=== PATIENT | female | born 1930 | race Caucasian/White ===

== ENCOUNTER 2017-05-17 09:36 | Inpatient (IN) | payer MEDICARE, OTHER ==
[~2017-05-17] VITALS: Ht 157.5 cm; Wt 68.0 kg
[2017-05-17] VITALS (8 sets, daily range): BP systolic 93–131; BP diastolic 56–85; PULSE 60–95; RESP 16–22; O2SAT 91–99
[~2017-05-17 09:36] MED LIST: ACYC400T2 PO; AZEL205.2 NS; CALC-190 PO; CHOL200047 PO; GABA-502 PO; HYDR200T5 PO; METH2.5T PO; OMEP20CA11 PO; PRD1T PO; RIVA20TA PO; SYN75 PO; [UNRECOGNIZED DRUG - CODE] PO
--- NOTE | 2017-05-17 09:47 | ED.REPORT ---
HPI-Abd Pain F 40 and Over Date of Service May 17, 2017 ED Provider: Dr. Johnson Pt is an 87 year old female with a history of a pacemaker who presents to the ED with complaints of nausea and vomiting over the past couple of days. She states that she has been dry heaving so frequently, that her chest has began to ate. Pt states that her symptoms are induced with eating, and so has not been able to eat her meals regularly. She denies any blood in her emesis. She states that she has abdominal pain, localized to the lower abdomen. She reports that she had a bowel obstruction in the past, but denies this feeling similar. She has not had a bowel movement since the onset of her symptoms, but admits to passing gas regularly. She denies any shortness of breath, diaphoresis or any other symptoms. Nursing Notes Stated Complaint: SICK Chief Complaint: Female Abdominal Pain Nursing Notes Reviewed: Yes Allergies: Coded Allergies: Cat Dander (Verified Allergy, Mild, 03/19/16) Dog Dander (Verified Allergy, Mild, 03/19/16) Scheduled Acyclovir (Acyclovir) 400 Mg Tablet 400 MG PO DAILY Calcium Carb&Cit/Mag12/Vit D3 (Calcium 500 mg Tablet) 1 Each Tablet 2 TAB PO DAILY Cyanocobalamin (Vitamin B-12) (Vitamin B-12) 2,000 Mcg Tablet 2,000 MCG PO DAILY Gabapentin (Gabapentin) 300 Mg Capsule 300 MG PO BID Hydroxychloroquine Sulfate (Hydroxychloroquine Sulfate) 200 Mg Tablet 400 MG PO DAILY Levothyroxine (Synthroid) 75 Mcg Tablet 75 MCG PO DAILY Methotrexate Sodium (Methotrexate) 2.5 Mg Tablet 25 MG PO WEEKLY Omeprazole (Omeprazole) 20 Mg Capsule.dr 40 MG PO DAILY PredniSONE (PredniSONE) 1 Mg Tab 3 MG PO DAILY Rivaroxaban (Xarelto) 20 Mg Tablet 20 MG PO DAILY Miscellaneous Medications Azelastine HCl (Azelastine HCl) 205.5 Mcg/0.137 Ml [place].pump 205.5 MCG NS Cholecalciferol (Vitamin D3) (Vitamin D3) 2,000 Unit Capsule 2,000 UNIT PO General Time Seen by MD: 09:46 Chief Complaint Abdominal pain Hx Obtained From: Patient Sudden in Onset?: Yes Onset Occurred: Yesterday Context of Onset: Eating Symptom Duration: Since onset Location: : Diffuse Quality: Painful Severity: Current: Mild Severity: Maximum: Moderate Similar Sx Previous: Yes Past Medical History Past Medical History Notes: Rehab Liaison: Dr. Reed Past Medical History Atrial fibrillation, on Xarelto Past Surgical History Pacemaker Family History noncontributory Smoking History Former Smoker Social History Drug Use: Denies drug use Other Social History: Good social support, , Local resident Ambulatory Status Independent Review of Systems Constitutional: Denies: Chills, Fever, Malaise, Weakness - generalized Respiratory: Denies: Non-productive cough, Shortness of breath, Wheezing Cardiovascular: Reports: Chest pain, Denies: Syncope GI: Reports: Abdominal pain, Nausea, Vomiting, Denies: Constipation, Diarrhea Female: Denies: Dysuria, Flank pain, Urinary frequency, Urinary urgency Musculoskeletal: Denies: Back pain, Neck pain Complete sys rev & neg: except as marked. Physical Exam Vital Signs Vital Signs (First) Date Time Temp Pulse Resp B/P Pulse Ox O2 Delivery O2 Flow Rate FiO2 05/17/17 09:42 37.0 83 22 131/85 99 Room Air Initial VS: Reviewed Head / Eyes: Atraumatic, Normocephalic, PERRL ENT: Mucous membranes moist, Conjunctiva normal, No scleral icterus Neck: Supple, Non-tender, Full range of motion Skin: Warm, Dry, No cyanosis Neurologic: Alert, Oriented, Nonfocal General/Constitutional: Awake, Alert, Well appearing, Well nourished, Cooperative Respiratory / Chest: Atraumatic, Breath sounds NL, Breath sounds = bilat Cardiovascular: Heart rate NL, Regular rhythm, Heart sounds NL Abdomen: Atraumatic, Soft Distended and tympanic to percussion Diffusely tender No focal rebound or guarding Back: Atraumatic, Inspection NL, No CVA tenderness Interpretation & Diagnostics Lab Results Interpretation Result Diagram: 05/17/17 1000 05/17/17 1000 Test 05/17/17 10:00 White Blood Count 7.2th/mm3 (3.8-10.1) Red Blood Count 4.19mil/mm3 (3.90-5.20) Hemoglobin 15.7g/dL (12.0-15.6) Hematocrit 45.3% (35.0-46.0) Mean Corpuscular Volume 108.1fL (81-100) Mean Corpuscular Hemoglobin 37.5pg (27.0-35.0) Mean Corpuscular Hemoglobin Concent 34.7% (32.0-37.0) Red Cell Distribution Width 14.8% (12.3-15.4) Platelet Count 193bil/L (150-400) Neutrophils (%) (Auto) 89.5% (40-74) Lymphocytes (%) (Auto) 3.7% (14-46) Monocytes (%) (Auto) 6.8% (4-12) Eosinophils (%) (Auto) 0% (0-5) Basophils (%) (Auto) 0% (0-3) Sodium Level 142mEq/L (134-144) Potassium Level 4.5mEq/L (3.5-5.2) Chloride Level 97mEq/L (97-108) Carbon Dioxide Level 24mmol/L (18-29) Blood Urea Nitrogen 28mg/dL (8-27) Creatinine 0.58mg/dL (0.57-1.00) Estimat Glomerular Filtration Rate 141mL/min (>59) Glucose Level 166mg/dL (60-99) Lactic Acid Level 3.0mmol/L (0.4-2.0) Calcium Level 9.9mg/dL (8.5-10.1) Magnesium Level 2.0mg/dL (1.6-2.6) Total Bilirubin 0.9mg/dL (0.0-1.2) Aspartate Amino Transf (AST/SGOT) 33U/L (0-50) Alanine Aminotransferase (ALT/SGPT) 15U/L (0-32) Alkaline Phosphatase 82U/L (25-165) Total Protein 7.5g/dL (6.4-8.4) Albumin 4.3g/dL (3.4-5.0) Lipase 53U/L (13-60) ECG Interpretation ECG Interpretation: Antrial-sensed ventricular-paced complexes - 81 Time: 10:20 Interpreted by: ED physician X-Ray Abdominal Interpretation IMPRESSION: Changes are present of small bowel obstruction. Gastric distention and air-fluid level is noted as well. Dictated by: Syed Stevenson M.D. on 05/17/2017 at 10:34 Interpretation / Wet Read by: Interpret - Radiologist Re-Eval/Medical Decision Med Decision/Clinical Course Findings of a small bowel obstruction, patient reports reportedly had some chest discomfort yesterday and has not had any chest discomfort today. Her troponin is elevated this may represent non-ST elevation NC versus other secondary causes of elevated troponin. She is given aspirin rectally due to the vomiting. She is already on anticoagulatoin for Afib. IV heparin is held given the acute small bowel obstruction. Will plan to admit to progressive care due to the elevated troponin. No nitroglycerin given due to no ongoing chest pain. EKG similar to prior. Source of Hx: Old records Re-Evaluation/Progress #1: Time of Eval: 10:45 Re-Evaluation/Progress Note: Pt is rechecked and informed of her imaging results and the plan to admit her at this time. She understands and agrees, all questions are addressed. Re-Evaluation/Progress #2: Time of Eval: 11:30 Re-Evaluation/Progress Note: Pt is rechecked and informed of her elevated troponin level. She reports that she has no chest pain currently, with her last episode being last night. Pt states that she had no bouts of chest pain associated with shortness of breath. Consultation : Consulted With: Hospitalist Call Returned at: 11:18 Coding Assistant: Will see patient, Agrees with plan, Accepts admit Counseled Regarding: Diagnosis, Lab results, Need for admission Discharge & Departure Primary Impression: Bowel obstruction Intestinal obstruction type: unspecified Qualified Code: K56.60 - Unspecified intestinal obstruction Disposition: ADMITTED TO HOSPITAL Discharge Condition All VS Reviewed: Yes Condition: Stable Referrals: Sky Stein DO (PCP) Maye Attestation Portions of this note were transcribed by Letty Boland. I, Dr. Johnson personally performed the history, physical exam and medical decision-making; I reviewed and confirmed the accuracy of the information in the transcribed note. Signed by: Maye Connors, 05/17/2017 1116 copies to: Sky Stein Timothy S DO May 17, 2017 09:47 BRYAN BOLAND May 17, 2017 09:57
[2017-05-17] MEDS ORDERED: 0.9% Sodium Chloride 500 ML IV ONE (10:00)
[2017-05-17] MEDS ORDERED: Ondansetron 2 mg/mL 2 mL Inj IVPUSH PRN ×2 (10:00→12:45)
[2017-05-17 10:18] LABS: BASOPHILS % (AUTO) 0 % (0-3); EOSINOPHILS % (AUTO) 0 % (0-5); MONOCYTES % (AUTO) 6.8 % (4-12); Mean Corpuscular Hemoglobin 37.5 pg (27.0-35.0); Mean Corpuscular Volume 108.1 fL (81-100); NEUTROPHILS % (AUTO) 89.5 % (40-74); Platelet Count 193 bil/L (150-400)
--- NOTE | 2017-05-17 10:39 | DRSVH ---
PROCEDURE: X-RAY ACUTE ABDOMINAL SERIES ([id number]) INDICATIONS: chest pain, vomiting TECHNIQUE: One view chest and two views of the abdomen were acquired. COMPARISON: [facility], , ABD ACUTE SERIES, 02/11/2015, 9:44. FINDINGS: Surgical changes and devices: Dual-lead pacemaker from the left is present. color television console monitor leads are seen over the chest. Chest: Lungs are clear. Heart size is enlarged. No pleural effusions. No pneumoperitoneum. Abdomen: Bowel gas pattern is abnormal. There is a markedly distended stomach and there are mildly d istended small bowel loops with air-fluid levels. Minimal gas or feces in the colon. No suspicious ca lcifications. Visualized solid organ contours appear normal. Bones: No suspicious bony lesions. IMPRESSION: Changes are present of small bowel obstruction. Gastric distention and air-fluid level is noted as well. Dictated by: Syed Stevenson M.D. on 05/17/2017 at 10:34 Approved by: Syed Stevenson M.D. on 05/17/2017 at 10:36
[2017-05-17] MEDS ORDERED: Benzoc-Butamben-Tetraca Spray 20 Gm Spray TOPICAL ONE (10:45)
[2017-05-17] MEDS ORDERED: Polyethylene Glycol (PEG) 17 Gm Powder PO PRN (12:45)
[2017-05-17] MEDS ORDERED: Alum-Mag Hydrox-Simeth 30 mL Suspension PO PRN (12:45)
--- NOTE | 2017-05-17 13:27 | PCM.HPMED ---
Subjective Date of Service May 17, 2017 Primary Provider: Admitting Physician: Chencho Guzman MD Primary Care Physician: Sky Stein DO Attending Physician: Clay Mayer MD Chief Complaint: Nausea and vomiting History of Present Illness: Trista Magdaleno is an 87 year old woman with a PMH of Afib on Xarelto, rheumatoid arthritis on Methotrexate and low dose prednisone, and prior SBOs s/p colon resection who presents with a 2 day history of nausea vomiting and mild chest pain. She states that her symptoms were worsened with eating, and relieved with small volume cold water. She further complains of pain in her lower abdomen, and states that she hasn't had a BM in the past 2 days but does endorse ongoing flatulence. She denies ongoing chest pain, SOB, dysuria, orthopnea, GUO, or cough. She does have a history of prior abdominal surgeries, she cannot recall the exact nature or timing, but at least a partial colectomy due to obstruction in 2014. She has a daughter who is highly involved in her care, but is currently out of town on vacation. In the ED the patient underwent abdominal Xray which was indicative of an SBO, initiated on NG suction which produced 800 ml of drainage fairly rapidly, and was incidentally found to have an elevated Troponin which is being trended. Review of Systems: Comprehensive ROS negative except as listed above. Allergies Coded Allergies: Cat Dander (Verified Allergy, Mild, 03/19/16) Dog Dander (Verified Allergy, Mild, 03/19/16) Home Medications Acyclovir (Acyclovir) 400 Mg Tablet 400 MG PO DAILY Calcium Carb&Cit/Mag12/Vit D3 (Calcium 500 mg Tablet) 1 Each Tablet 2 TAB PO DAILY Cyanocobalamin (Vitamin B-12) (Vitamin B-12) 2,000 Mcg Tablet 2,000 MCG PO DAILY Gabapentin (Gabapentin) 300 Mg Capsule 300 MG PO BID Hydroxychloroquine Sulfate (Hydroxychloroquine Sulfate) 200 Mg Tablet 400 MG PO DAILY Levothyroxine (Synthroid) 75 Mcg Tablet 75 MCG PO DAILY Methotrexate Sodium (Methotrexate) 2.5 Mg Tablet 25 MG PO WEEKLY Omeprazole (Omeprazole) 20 Mg Capsule.dr 40 MG PO DAILY PredniSONE (PredniSONE) 1 Mg Tab 3 MG PO DAILY Rivaroxaban (Xarelto) 20 Mg Tablet 20 MG PO DAILY Miscellaneous Medications Azelastine HCl (Azelastine HCl) 205.5 Mcg/0.137 Ml [place].pump 205.5 MCG NS Cholecalciferol (Vitamin D3) (Vitamin D3) 2,000 Unit Capsule 2,000 UNIT PO . PMH Afib on Xarelto with a pacer Colonic obstruction requiring partial resection Rheumatoid arthritis GERD Aceves's esophagus diverticulitis IBS . Surgical History Pacer implantation Partial colectomy 2015 Hysterectomy . Family History Patient unable to relate any relevant family history Social History Hx Alcohol Use: No Hx Substance Use: No Hx Tobacco Use: No Smoking Status: Former Smoker Exam Vital Signs Vital Sign - Last Date Time Temp Pulse Resp B/P Pulse Ox O2 Delivery O2 Flow Rate FiO2 05/17/17 13:06 80 18 100/70 94 Room Air 05/17/17 09:42 37.0 Exam Gen: A/O x3 pleasant cooperative elderly woman in mild acute distress secondary to abdominal pain and dry mouth Neck: supple, non tender, no thyromegaly, no JVD HEENT: PERRL, EOMI, no scleral icterus, no conjunctival pallor CV: irregularly irregular, no murmurs rubs or gallops Resp: Lungs CTA BL, no wheezing rales or rhonchi Abd: mildly firm and distended, BS diminished throughout, mild tenderness to palpation in lower field, no rebound or guarding, no organomegaly Extr: No cyanosis clubbing or edema Neuro: CN 2-12 grossly intact, no focal neurologic deficit Psych: Pleasant and appropriate mood and affect. Lab and Diagnostics Labs Item Value Date Time Red Blood Count 4.19 mil/mm3 05/17/17 1000 Mean Corpuscular Volume 108.1 fL H 05/17/17 1000 Mean Corpuscular Hemoglobin 37.5 pg H 05/17/17 1000 Mean Corpuscular Hemoglobin Concent 34.7 % 05/17/17 1000 Red Cell Distribution Width 14.8 % 05/17/17 1000 Neutrophils (%) (Auto) 89.5 % H 05/17/17 1000 Lymphocytes (%) (Auto) 3.7 % L 05/17/17 1000 Eosinophils (%) (Auto) 0 % 05/17/17 1000 Monocytes (%) (Auto) 6.8 % 05/17/17 1000 Basophils (%) (Auto) 0 % 05/17/17 1000 Estimat Glomerular Filtration Rate 141 mL/min 05/17/17 1000 Lactic Acid Level 3.0 mmol/L H 05/17/17 1000 Calcium Level 9.9 mg/dL 05/17/17 1000 Magnesium Level 2.0 mg/dL 05/17/17 1000 Total Bilirubin 0.9 mg/dL 05/17/17 1000 Aspartate Amino Transf (AST/SGOT) 33 U/L 05/17/17 1000 Alanine Aminotransferase (ALT/SGPT) 15 U/L 05/17/17 1000 Alkaline Phosphatase 82 U/L 05/17/17 1000 Troponin T 0.274 ug/L *H 05/17/17 1000 Total Protein 7.5 g/dL 05/17/17 1000 Albumin 4.3 g/dL 05/17/17 1000 Lipase 53 U/L 05/17/17 1000 Result Diagram: 05/17/17 1000 05/17/17 1000 X-Rays, CTs and MRIs X-RAY ACUTE ABDOMINAL SERIES IMPRESSION: Changes are present of small bowel obstruction. Gastric distention and air-fluid level is noted as well. Dictated by: Syed Stevenson M.D. on 05/17/2017 at 10:34 Approved by: Syed Stevenson M.D. on 05/17/2017 at 10:36 . 12-lead ECG Paced complex, rate of 81 Assessment & Plan Trista Magdaleno is an 87 year old man with a PMH of prior SBO and colonic obstruction, RA, and Afib on Xarelto with a pacer who presents with a 2 day history of worsening nausea, vomiting, and anorexia for the past 2 days. Imaging in the ED indicative of SBO, started on NG suction and NPO with plan for gastrographin challenge tomorrow unless patient has a BM. Of note the patient also had an Elevated Trop of uncertain significance which is being trended. Small bowel obstruction, POA, acute. Active -Imaging suggestive of SBO, nausea, vomiting, and anorexia with history of GI obstruction and multiple abdominal surgeries -NG tube suction -NPO -IV NS @100/hr -Possible gastrographin challenge test tomorrow -Holding non essential PO meds(continue Levothyroxine, methotrexate, and Prednisone) -Will consider surgical consultation if symptoms worsen or fail to improve -MS as needed for abdominal pain Elevated Troponin of uncertain significance, POA, acute. Active -Likely secondary to stress induced demand ischemia due to the above -Patient complained of chronic waxing waning chest pain -Not exertional, not relieved by Nitro -Will trend Trop Q4 -Holding Heparin drip to trend as patient may require surgery in the near future is the above does not resolve Hypothyroid, POA, chronic. Active -Will continue Levothyroxine Afib on Xarelto, POA, chronic. Active -Will hold Xarelto for possible surgical intervention Rheumatoid Arthitis, POA, chronic. Stable -Continue Methotrexate and Prednisone Patient Status: Inpatient, anticipated length of stay >2 midnights due to severity of condition and complexity of treatment plan. Pain Evaluation: Adequate Pain Control VTE Prophylaxis Indicated: Contraindicated (Want to make sure patient does not require procedure) VTE Mechanical Devices: Intermittant Pneumatic CD Resuscitation Status: DNR/DNI:Do Not Resuscitate/Intubate Wood Harrington DO May 17, 2017 13:27
--- NOTE | 2017-05-17 16:29 | NUR ---
Med Rec Pt. is a poor historian of her home medications. Med Rec is pending on medication list from pt's [facility], [facility] Addendum: 05/17/17 at 1730 by POONAM LLAMAS RN [facility] faxed med list. Attempted to review the list with pt. Pt. got frustrated, "I don't remember this. Dr. Bianchi knows what I'm taking." Plan: Get med list from Dr. Bianchi's office on Thursday. aware. Primary nurse, Jayne Burroughs RN aware.
--- NOTE | 2017-05-17 17:00 | NUR ---
Admit to [facility] 2011 NPO status; NGT with scant output (reported by Cynthia RN NGT output of 800cc. Admission in progress-see EMR.
--- NOTE | 2017-05-17 19:00 | NUR ---
Bed Waqar alarm in place & active
[2017-05-17] MEDS: Sodium Chloride LOK Flush 10 mL Syringe IVFLUSH SCH ×2 (19:27→23:54)
[2017-05-17] MEDS: 0.9% Sodium Chloride 1,000 ML IV SCH ×2 (20:11→20:12)
[2017-05-18] VITALS (9 sets, daily range): BP systolic 94–143; BP diastolic 56–73; PULSE 60–80; RESP 16–20; O2SAT 92–96
[2017-05-18 03:39] LABS: BASOPHILS % (AUTO) 0.2 % (0-3); EOSINOPHILS % (AUTO) 0.7 % (0-5); MONOCYTES % (AUTO) 9.1 % (4-12); Mean Corpuscular Hemoglobin 37.1 pg (27.0-35.0); Mean Corpuscular Volume 113.5 fL (81-100); NEUTROPHILS % (AUTO) 72.5 % (40-74); Platelet Count 164 bil/L (150-400)
[2017-05-18 03:49] LABS: INR 1.08 ratio
[2017-05-18 04:03] LABS: Phosphorus 3.3 mg/dL (2.5-4.9)
--- NOTE | 2017-05-18 04:55 | NUR ---
GI: Pt. denies nausea throughout shift. Denies pain with light abdominal palpation. NG tube in place, draining small amount of green/brown drainage. NPO throughout shift. No overt signs or symptoms of distress.
[2017-05-18] MEDS: 0.9% Sodium Chloride 1,000 ML IV SCH ×2 (05:06→15:24)
[2017-05-18] MEDS: Sodium Chloride LOK Flush 10 mL Syringe IVFLUSH SCH ×2 (07:45→15:24)
[2017-05-18] MEDS: predniSONE 1 mg Tablet PO SCH ×2 (08:30→10:17)
--- NOTE | 2017-05-18 08:54 | NUR ---
Social Work: Initial Assessment D: Per EMR review, pt is an 87 year old female admitted for SBO. Pt is Medicare with [place] [employer]; pt has not LTC or VA Benefits. PCP is Sky Stein DO. NOK is Celina Chakraborty, dtr, . Advanced directives information declined when offered by admit RN. Readmit score not entered at this time. SHIP SCALER met with the patient at bedside. Sw role explained contact info and d/c planning checklist provided. Pt lives in [place], alone,, in a single story home with 1 step to enter. Pt uses no DME, continues to drive and I with all self care. Pt states she has never had HH or shelter. She reports that her daughter who usually checks in on her is out of town on vacation. The pts identified support person is her neighbor Marlene ([phone]). Pt hopes to be able to discharge home when medically stable. Pt has been SBA-1PA during admit with NG tube in place. A: Pt who lives at home, alone, and is I. P: Evolving; Anticipate discharge home. SHIP SCALER to continue to follow to assess for discharge needs. EVELIA Powers Addendum: 05/18/17 at 0859 by KAREN LOGAN SS Amended: Links added.
[2017-05-18 10:06] LABS: APPEARANCE,URINE SLIGHTLY CLOUDY (CLEAR,HAZY); COLOR,URINE DARK YELLOW (YELLOW); OCCULT BLOOD,URINE MODERATE (NEGATIVE); PH,URINE 5.5 (5.0-8.0); UROBILINOGEN,URINE NORMAL (NORMAL)
--- NOTE | 2017-05-18 10:12 | NUR ---
Case Management: Clarification of patient status: Inpatient per MD order on 05/17/17. Brenda Sampson RN
[2017-05-18] MEDS ORDERED: DICY10CA56 PO (16:56)
[2017-05-18] MEDS ORDERED: LACT1CAP73 PO (16:56)
[2017-05-18] MEDS ORDERED: ACYC400T2 PO (16:56)
[2017-05-18] MEDS ORDERED: BACL10TA PO (16:56)
[2017-05-18] MEDS ORDERED: METH25VI21 PO (16:56)
[2017-05-18] MEDS ORDERED: OXYC1TAB24 PO (16:56)
[2017-05-18] MEDS ORDERED: CITA10TA9 PO (16:56)
[2017-05-18] MEDS ORDERED: ALEN70TA46 PO (16:56)
[2017-05-18] MEDS ORDERED: CHOL10008 PO (16:56)
[2017-05-18] MEDS ORDERED: OMEG-38 PO (16:56)
[2017-05-18] MEDS ORDERED: ACET325C PO (16:56)
[2017-05-18] MEDS ORDERED: IPRA15SP NASAL (16:56)
[2017-05-18] MEDS ORDERED: RANI150T11 PO (16:56)
[2017-05-18] MEDS ORDERED: FA/V1TAB2 PO (16:56)
--- NOTE | 2017-05-18 18:52 | PCM.PNMED ---
Subjective Date of Service May 18, 2017 Subjective Trista Magdaleno is an 87 year old woman with a PMH of prior SBO and colonic obstruction, RA, and Afib on Xarelto with a pacer who presents with a 2 day history of worsening nausea, vomiting, and anorexia for the past 2 days. Patient admitted for SBO and is currently being medically managed. Nursing reports no acute events overnight. Patient seen and examined. Reports to have had some flatus overnight. C/o mild ABD discomfort. Denies CP, SOB, N/V/D, or headache. Patient making little urine, but has been NPO overnight. ROS reviewed and is otherwise negative unless noted above. Exam Vital Signs Vital Sign - Last Date Time Temp Pulse Resp B/P Pulse Ox O2 Delivery O2 Flow Rate FiO2 05/18/17 16:12 36.6 69 18 124/63 94 Room Air Intake and Output 05/17/17 05/17/17 05/18/17 Cumulative From/Thru 15:00 23:00 07:00 05/17/17 09:42 - 05/18/17 06:16 Intake Total 1000 ml 100 ml 886 ml 1986 ml Output Total 800 ml 450 ml 1250 ml Balance 200 ml 100 ml 436 ml 736 ml Intake Oral 100 ml 0 ml 100 ml IV Total 1000 ml 886 ml 1886 ml Output Urine Total 300 ml 300 ml Gastric Drainage Total 150 ml 150 ml Other 800 ml 800 ml # Voids 1 1 2 Exam Constitutional: awake and alert and oriented x3. No acute distress. Head: Normocephalic and atraumatic. Eyes: EOMI, no sleral icterus Heart: regular rate and rhythm. No peripheral edema. Lungs: clear to auscultation, no wheeze, rales, or rhonchi ABD: soft, mildly tender diffusely. decreased bowel sounds with occasional"tin pings" Musculoskeletal: moves all four extremities. appropriate muscle tone Neuro: CN II-XII intact. no focal deficit. Psych: appropriate mood and affect. IVs and Medications IV Fluids 3L NS given in the last 24 hours. Medications Reviewed: Medications were reviewed in detail Lab and Diagnostics Item Value Date Time Red Blood Count 3.34 mil/mm3 L 05/18/17304 Mean Corpuscular Volume 113.5 fL H 05/18/17304 Mean Corpuscular Hemoglobin 37.1 pg H 8/7/17 0305 Mean Corpuscular Hemoglobin Concent 32.7 % 05/18/17 030 Red Cell Distribution Width 14.9 % 05/18/17 030 Platelet Count 164 gerard/L 05/18/17 0305 Neutrophils (%) (Auto) 72.5 % 05/18/17 030 Lymphocytes (%) (Auto) 17.2 % 05/18/17 030 Monocytes (%) (Auto) 9.1 % 05/18/17 030 Eosinophils (%) (Auto) 0.7 % 05/18/17 030 Basophils (%) (Auto) 0.2 % 05/18/17 030 Estimat Glomerular Filtration Rate 171 mL/min 05/18/17 030 Calcium Level 8.1 mg/dL L 05/18/17 030 Phosphorus Level 3.3 mg/dL 05/18/17 030 Magnesium Level 2.0 mg/dL 05/18/17 030 Total Bilirubin 0.8 mg/dL 05/18/17 030 Aspartate Amino Transf (AST/SGOT) 28 U/L 05/18/17 0305 Alanine Aminotransferase (ALT/SGPT) 10 U/L 05/18/17 0305 Alkaline Phosphatase 51 U/L 05/18/17 0305 Total Protein 5.4 g/dL L 05/18/17 0305 Albumin 3.1 g/dL L 05/18/17 0305 Troponin T 0.217 ug/L *H 05/18/17 0031 Result Diagram: 05/18/17 03005/18/17 030 X-Rays, CTs and MRIs X-RAY ACUTE ABDOMINAL SERIES IMPRESSION: Changes are present of small bowel obstruction. Gastric distention and air-fluid level is noted as well. Dictated by: Syed Stevenson M.D. on 05/17/2017 at 10:34 Approved by: Syed Stevenson M.D. on 05/17/2017 at 10:36 . 12-lead ECG Paced complex, rate of 81 Assessment & Plan Trista Magdaleno is an 87 year old female with a PMH of prior SBO and colonic obstruction, RA, and Afib on Xarelto with a pacer who presents with a 2 day history of worsening nausea, vomiting, and anorexia for the past 2 days. Imaging in the ED indicative of SBO, started on NG suction and NPO with plan for gastrographin challenge tomorrow unless patient has a BM. Small bowel obstruction, POA, acute. Active -Imaging suggestive of SBO, nausea, vomiting, and anorexia with history of GI obstruction and multiple abdominal surgeries -NG tube suction -NPO -IV NS @100/hr -Gastrographin contrast given today for study to be performed 05/18 -Holding non essential PO meds(continue Levothyroxine, methotrexate, and Prednisone) -Will consider surgical consultation if symptoms worsen or fail to improve -Morphine sulfate IV as needed for abdominal pain - Ambulate patient as tolerated. Elevated Troponin of uncertain significance, POA, acute. Active -Likely secondary to stress induced demand ischemia due to the above -Patient complained of chronic waxing waning chest pain -Not exertional, not relieved by Nitro -Troponin trending down 0.329 on admission-->0.114 -Holding Heparin drip to trend as patient may require surgery in the near future is the above does not resolve Hypothyroid, POA, chronic. Active -Will continue Levothyroxine Afib on Xarelto, POA, chronic. Active -Will hold Xarelto for possible surgical intervention Rheumatoid Arthitis, POA, chronic. Stable -Continue Methotrexate and Prednisone Daughter - Celina: [phone] Patient Status: Patient is being medically managed for SBO, gastrographin study to be performed 05/18, pending patient's improvement, length of stay is undetermined at this time. VTE Mechanical Devices: Intermittant Pneumatic CD Resuscitation Status: DNR/DNI:Do Not Resuscitate/Intubate Attending Statement The patient was seen and examined together with Dr. Mccray on 05/18/17 and I have added additional information to the note above. Flip Mccray DO May 18, 2017 18:52 Mercy Goel DO May 19, 2017 17:00
--- NOTE | 2017-05-18 19:19 | NUR ---
Gastrografin, Multidisciplinary Communication 0810 - Dr. Mccray came to assess her and was informed about her complaints throat pain from the NG tube and chest discomfort which she said she had been experiencing the last couple of days. 0940 - Discussed her care with Dr. Goel, Dr. Harrington, and the rest of the multidisciplinary care team during morning rounds. Informed them that upon assessing her a small lump was found above her right breast which she says is where her pain was mostly located. Dr. Goel said she would assess her. 1030 - Spoke to Falguni from Pharmacy and told her that the [facility] seemed to be out of 2mg of Morphine syringes. She said there was a shortage of them and she would allow for a 4mg Morphine syringe to be pulled so the patient could receive the medication. 1050 - Updated her daughter on her care via the phone. 1240 - The Crusher Assembler notified this nurse that she had some Bigeminal and Trigeminal PVCs. Paged Dr. Mccray who called back and said he would come and take a look at the telemetry strips, but to hold off from getting her an EKG for now. 1518 - Called Radiology department as the Gastrografin test had not been completed yet as ordered. Was told that they did not see any active orders for the test. This nurse could clearly see an active order for the test. They said they would run the test regardless and to just check with the MD on how long he wanted the scan after the contrast was given. Spoke to Dr. Mccray who said to give the contrast now and get the scan in the morning around 8 am. Called them back and left a message as no one answered. Falguni, the Stamping Die Maker, tried to input the order again, but Radiology said they still could not see it. They said the test would still happen at 8 AM in the morning. 1615 - A tech came and delivered the Gastrografin which he said could be given via her NG tube. Checked her NG tube placement. Gave her the whole bottle per his instructions, flushed her NG tube with tap water, and clamped it for about 45 minutes before restarting her on suction. 1700 - Kath Bell RN completed the medication req. Dr. Mccray was notified so her eMAR could be updated. 1735 - Notified Dr. Mccray that she had lower urinary (daniel) output today and only 300 mls during the night even though she had Normal saline IV running at 100 mls/hour. He said he would monitor her output and order AM labs. She had a total of 500 mls of urinary out during the day shift. She had large diarrhea at the end of the shift.
--- NOTE | 2017-05-18 20:01 | NUR ---
Case Management: IMM explained to patient at 1940, all questions answered. Signed original placed in chart, copy given to patient. Celina Canada RN
[2017-05-19] VITALS (9 sets, daily range): BP systolic 120–145; BP diastolic 71–83; PULSE 60–76; RESP 17–22; O2SAT 93–99
[2017-05-19] MEDS: Sodium Chloride LOK Flush 10 mL Syringe IVFLUSH SCH ×4 (00:29→21:33)
[2017-05-19] MEDS: 0.9% Sodium Chloride 1,000 ML IV SCH ×2 (02:36→14:41)
[2017-05-19 02:59] LABS: BASOPHILS % (AUTO) 0.3 % (0-3); EOSINOPHILS % (AUTO) 0.8 % (0-5); MONOCYTES % (AUTO) 9.4 % (4-12); Mean Corpuscular Volume 112.7 fL (81-100); NEUTROPHILS % (AUTO) 76.1 % (40-74); Platelet Count 142 bil/L (150-400)
--- NOTE | 2017-05-19 03:51 | NUR ---
Bowel Movements/GI: Pt. passed multiple large, loose bowel movements during shift. Denies nausea. Denies pain with light abdominal palpation. NG to low intermittent suction, 30mL collected from NG tube during shift. No overt signs or symptoms of distress.
[2017-05-19] MEDS: predniSONE 1 mg Tablet PO SCH (08:10)
--- NOTE | 2017-05-19 11:30 | PCM.PNMED ---
Subjective Date of Service May 19, 2017 Subjective Trista Magdaleno is an 87 year old woman with a PMH of prior SBO and colonic obstruction, RA, and Afib on Xarelto with a pacer who presents with a 2 day history of worsening nausea, vomiting, and anorexia for the past 2 days. Patient admitted for SBO and is currently being medically managed. Nursing reports that patient had large, loose bowel movement during the night. No other events overnight. Patient seen and examined. Patient reports no ABD pain, N/V/D, CP, SOB, and headache. Patient is making good urine and had a bowel movement overnight. ROS reviewed and negative unless noted above. Exam Vital Signs Vital Sign - Last Date Time Temp Pulse Resp B/P Pulse Ox O2 Delivery O2 Flow Rate FiO2 05/19/17 10:41 76 05/19/17 07:43 36.4 17 145/80 95 Room Air Intake and Output 05/18/17 05/18/17 05/19/17 Cumulative From/Thru 15:00 23:00 07:00 05/17/17 09:42 - 05/19/17 06:18 Intake Total 1307 ml 823 ml 4116 ml Output Total 500 ml 880 ml 2630 ml Balance 807 ml -57 ml 1486 ml Intake Oral 100 ml IV Total 1307 ml 823 ml 4016 ml Output Urine Total 500 ml 450 ml 1250 ml Urine/Stool Mix 400 ml 400 ml Gastric Drainage Total 30 ml 180 ml Other 800 ml # Voids 3 5 # Bowel Movements 1 1 Exam Constitutional: Awake, alert and oriented x4. No acute distress. Head: normocephalic and atraumatic Eyes: EOMI, pupils equal round and reactive to light Heart: regular rate and rhythm. No peripheral edema. Lungs: clear to auscultation. no wheeze, rales, or rhonchi ABD: soft, nontender, bowel sounds present throughout. Musculoskeletal: moves all four extremities appropriately. Skin: warm, dry, no rash. Neuro: CN II-XII intact. No focal deficits. Psych: appropriate mood and affect. IVs and Medications IV Fluids 2L NS given in the last 24 hours. Medications Reviewed: Medications were reviewed in detail Lab and Diagnostics Item Value Date Time Red Blood Count 3.22 mil/mm3 L 05/19/17 0245 Mean Corpuscular Volume 112.7 fL H 05/19/17244 Mean Corpuscular Hemoglobin 37.0 pg H 05/19/17244 Mean Corpuscular Hemoglobin Concent 32.8 % 05/19/17244 Red Cell Distribution Width 14.9 % 05/19/17244 Platelet Count 142 gerard/L L 05/19/17244 Neutrophils (%) (Auto) 76.1 % H 05/19/17244 Lymphocytes (%) (Auto) 13.2 % L 05/19/17244 Monocytes (%) (Auto) 9.4 % 05/19/17244 Basophils (%) (Auto) 0.3 % 05/19/17244 Eosinophils (%) (Auto) 0.8 % 05/19/17244 Estimat Glomerular Filtration Rate 223 mL/min 05/19/17244 Calcium Level 7.7 mg/dL L 05/19/17244 Aspartate Amino Transf (AST/SGOT) 25 U/L 05/19/17244 Total Bilirubin 0.6 mg/dL 05/19/17244 Alanine Aminotransferase (ALT/SGPT) 10 U/L 05/19/17244 Alkaline Phosphatase 52 U/L 05/19/17244 Total Protein 4.9 g/dL L 05/19/17244 Albumin 3.2 g/dL L 05/19/17244 Troponin T 0.114 ug/L *H 05/18/172027 Result Diagram: 05/19/1724405/19/17244 Microbiology Urine culture: Gram Neg Ottoniel - probably E. coli X-Rays, CTs and MRIs X-RAY ACUTE ABDOMINAL SERIES IMPRESSION: Changes are present of small bowel obstruction. Gastric distention and air-fluid level is noted as well. Dictated by: Syed Stevenson M.D. on 05/17/2017 at 10:34 Approved by: Syed Stevenson M.D. on 05/17/2017 at 10:36 . 12-lead ECG Paced complex, rate of 81 Assessment & Plan Trista Magdaleno is an 87 year old female with a PMH of prior SBO and colonic obstruction, RA, and Afib on Xarelto with a pacer who presents with a 2 day history of worsening nausea, vomiting, and anorexia for the past 2 days. Patient is being medically managed for SBO. Patient has had a bowel movement during the night of 05/18. Small bowel obstruction, POA, acute. Improving -Imaging suggestive of SBO, nausea, vomiting, and anorexia with history of GI obstruction and multiple abdominal surgeries -NG tube suction discontinued -Progress to Clear liquid diet as tolerated, then progress to full liquid diet as tolerated for second meal, progress to full diet as tolerated for third meal. -IV NS @100/hr will discontinue once patient is tolerating a clear diet -Gastrographin study complete, shows resolution of SBO. -Holding non essential PO meds (continue Levothyroxine, methotrexate, and Prednisone) -Morphine sulfate IV as needed for abdominal pain - Ambulate patient as tolerated. Elevated Troponin of uncertain significance, POA, acute. Active -Likely secondary to stress induced demand ischemia due to the above -Patient complained of chronic waxing waning chest pain -Not exertional, not relieved by Nitro -Will trend Trop Q4 -Holding Heparin drip to trend as patient may require surgery in the near future is the above does not resolve Hypothyroid, POA, chronic. Active -Will continue Levothyroxine Afib on Xarelto, POA, chronic. Active -Will hold Xarelto for possible surgical intervention Rheumatoid Arthitis, POA, chronic. Stable -Continue Methotrexate and Prednisone -Patient has macrocytic anemia secondary to jail methotrexate therapy, consider folate supplementation once tolerating PO foods and full resolution of SBO. Ariana Partick: [phone] Patient Status: Patient had bowel movement overnight. Is tolerating food. We will continue care overnight for a possible discharge in the morning. VTE Mechanical Devices: Intermittant Pneumatic CD Resuscitation Status: DNR/DNI:Do Not Resuscitate/Intubate Attending Statement The patient was seen and examined together with Dr. Mccray on 05/19/17 and I have added additional information to the note above. Flip Mccray DO May 19, 2017 11:30 Mercy Goel DO May 25, 2017 13:30
--- NOTE | 2017-05-19 12:51 | DRSVH ---
PROCEDURE: X-RAY GASTROGRAFIN CHALLENGE, 1 VIEW ABDOMEN INDICATIONS: SMALL BOWEL OBSTRUCTION TECHNIQUE: One view of the abdomen acquired. COMPARISON: [facility], CR, XR ABD ACUTE SERIES 3VW, 05/17/2017, 10:11. FINDINGS: Surgical changes and devices: Nasogastric tube tip traverses the GE junction and there are multiple e pigastric surgical clips. Cardiac leads present incompletely visualized. Bowel: Residual contrast media throughout the colon otherwise normal bowel gas pattern. Soft tissues: No suspicious abdominal calcifications. Visualized solid organ contours appear normal in size. Bones: No suspicious bony lesions. IMPRESSION: Normal bowel gas pattern with residual contrast media distributed throughout the colon. Dictated by: Man Hannah [facility] Interpreted: Syed Stevenson MD on 05/19/2017 at 11:57 Approved by: Syed Stevenson M.D. on 05/19/2017 at 12:50
--- NOTE | 2017-05-19 16:40 | PCM.PROC ---
Procedure Note Date of Service: May 19, 2017 Procedure: Procedure: Osteopathic Manipulative Treatment Subjective: Mrs. Gregorio is an 87-year-old female who complains of right-sided chest pain just superior to the breast. The patient was concerned that this may be a lump in the breast. The pain does not get better or worse but remained constant and has been present for the last couple of days. The patient feels that this may be secondary to her lying in bed and not moving around and going without a bra this can sometimes cause strain on the muscles.The patient was seen and examined and the area was palpated able to reproduce the pain which felt more like muscle strain than an actual lump. Risks and benefits of OMT were explained to the patient and verbal consent obtained. Osteopathic Structural Exam: Thoracics: Thoracic outlet rotated left Upper extremities: Right pectoral major hypertonicity Patient responded well to treatment. Patient stated that her pain was significantly improved after treatment and the "lump" was no longer present. Osteopathic treatment modalities used: Myofascial release, BLT Provider and Auxiliary Power Equipment Operator: Dr. Flip Grover (medical student) Bridget Cummings (medical student) Mercy Goel DO May 19, 2017 16:40
--- NOTE | 2017-05-19 19:39 | PCM.DIMED ---
Flip Mccray DO 05/19/17 1938: Discharge Instructions Date of Service May 20, 2017 Dates of Hospitalization May 17, 2017 at 11:14 Discharge Diagnosis Discharge Diagnosis Small bowel obstruction Elevated Troponin of uncertain significance Hypothyroid Afib on Xarelto Rheumatoid Arthitis Medication Instructions Additional med instructions Take the Bactrim DS 160mg tablet twice a day for the next seven days to treat your urinary tract infection. Please do not skip your doses of your anti-depressant, Citalopram. This medicine should be taken daily to see the full effect of the medication. Talk to your primary care provider about your need to continue this medication in the future. Test Results Test Results X-RAY GASTROGRAFIN CHALLENGE, 1 VIEW ABDOMEN IMPRESSION: Normal bowel gas pattern with residual contrast media distributed throughout the colon. Dictated by: Man KENT Interpreted: Syed Stevenson MD on 05/19/2017 at 11:57 -indicating resolution of small bowel obstruction. Diet Discharge Diet: Heart Healthy Activity Discharge Activity: No restrictions Call your provider Call your provider for: Fever or Chills, Shortness of breath, Bleeding, Chest pain, Vomitting, Excessive diarrhea, Weakness (unilateral) Patient Instructions Patient Instructions Drink plenty of fluids, and foods with fiber. Follow-up plan Follow up with your Primary Care Provider in one week to discuss your recent hospital admission. Follow-up Provider: Sky Stein DO Follow-up with PCP in: 1 week Mercy Goel DO 05/21/17 1417: Discharge Instructions Attending's Statement The patient was seen and examined together with Dr. Mccray on 05/20/17 and I agree with the history, exam and plan as outlined in the note above. Flip Mccray DO May 19, 2017 19:38 Mercy Goel DO May 21, 2017 14:17
--- NOTE | 2017-05-19 19:41 | NUR ---
Gastrointestinal 0657 - Diagnostic imaging called for information saying they were trying to make sure the order for the Gastrografin scan was placed correctly so it could happen at 0800. 0740 - Carmen called and received a report for the scan. 0753 - She left for the scan. The Form [employer] was notified. 0805 - She returned to [facility] and the Form [employer] was notified. 0940 - Discussed her care with Dr. Goel, Dr. Harrington, and the rest of the multidisciplinary care team during morning rounds. Dr. Harrington said her NG tube could be discontinued and that her diet could be advanced as tolerated. 1015 - Her NG tube was discontinued intact. She tolerated it well. She was given some jello and then pudding which she tolerated well. 1035 - Called her daughter Celina back and gave her an update. 1106 - Dr. Mccray called to say he would like her transferred to another unit, she would likely discharged tomorrow, to change her diet to a clear liquids, and to walk her in the hallways as she tolerated. 1326 - Dr. Harrington said she could be saline locked which she was made. 1610 - She requested to eat some ice cream. Informed her that her diet was clear liquid. She said, "Oh, I'm sure the Doctor wouldn't mind." Contacted Dr. Harrington who said she could have some. She able to eat some ice cream which made her quite happy. 181 - Paged Dr. Mccray as she was requesting a sleeping aide. Did not hear back from him. Notified night clerk. Care continues.
[2017-05-19] MEDS ORDERED: oxyCODONE-Acetamin 5-325 mg Tablet PO ONE (21:20)
--- NOTE | 2017-05-19 21:23 | NUR ---
Transfer Pt alert and oriented x3. Forgetful at times but appropriate with staff. Calls for assistance. Md made aware of pt reports of throat discomfort and insomnia. Pt reports Oxycodone-Tylenol helps her pain and helps her insomnia. Md made aware with one time order tonight. Pt understanding about the need to transfer tonight. Report given to Sonya. Pt's neighbor/friend made aware of changes as requested and pt's was agreeing to that. Pt left room with all belonging, charts and medications around 2129.
[2017-05-20] MEDS: 0.9% Sodium Chloride 1,000 ML IV SCH ×2 (00:12→09:41)
--- NOTE | 2017-05-20 00:14 | NUR ---
Transfer pt arrived to [facility] room 1006 via WC. she is alert and oriented x3, able to make her needs known. pt has been oriented to room. belongings are in closet. she complained of discomfort in her throat and was given her one time dose of percocet. pt fell asleep after administration of percocet and has been resting comfortably.
[2017-05-20 01:35] VITALS: BP 143/83; PULSE 67; RESP 20; O2SAT 95
[2017-05-20 05:35] VITALS: BP 148/78; PULSE 65; RESP 16; O2SAT 94
[2017-05-20] MEDS ORDERED: cefTRIAXone Inj 2,000 MG in Dextrose 5% Minibag Plus 50 ML IV ONE (07:55)
[2017-05-20 08:03] VITALS: BP 123/77; PULSE 65; RESP 18; O2SAT 98
[2017-05-20 09:09] VITALS: PULSE 71
[2017-05-20] MEDS: predniSONE 1 mg Tablet PO SCH (09:18)
[2017-05-20] MEDS: Sodium Chloride LOK Flush 10 mL Syringe IVFLUSH SCH (09:18)
[2017-05-20] MEDS ORDERED: SULF1TAB35 PO (09:50)
--- NOTE | 2017-05-20 10:53 | NUR ---
Social Work: Discharge D: Pt discussed in multidisciplinary rounds; pt is medically stable for discharge home. No concerns or needs identified. Pt is I with self care and lives in [place], alone. HAND SPRING REPAIRER HELPER met with the patient at bedside to confirm discharge plan and re-assess for discharge needs. Pt states that she agrees with the plan to discharge home and that she has no concerns about going home. Pt states her friend, Marlene is transporting her home. EMR reviewed; pt is ambulating I and no sw needs identified. A: Pt who is I at baseline. P: Pt to discharge home via POV and no further sw needs. Neighbor/friend to transport. EVELIA Powers
--- NOTE | 2017-05-20 13:41 | NUR ---
Discharge Pt discharge to private vehicle with neighbor. [facility] and hard copy given to pt. Pt has discharge instructions, care notes and all belongings. All questions answered. VSS, MCCONNELL, A&O x 3. No N/V or abd pain. Pt had small BM this AM. Able to walk independently in room and with FOREST NURSERY SUPERVISOR in hallways. No c/o pain.
--- NOTE | 2017-05-20 19:17 | PCM.DC.MED ---
Discharge Summary Date of Service May 20, 2017 Dates of Hospitalization Date of Hospital Admission May 17, 2017 at 11:14 Date of Discharge: May 20, 2017 Providers: Admitting Physician: Chencho Guzman MD Primary Care Physician: Sky Stein DO Attending Physician: Mercy Goel DO Diagnosis at Time of Discharge Diagnosis at Time of Discharge Small bowel obstruction Elevated Troponin of uncertain significance Hypothyroid Afib on Xarelto Rheumatoid Arthitis Procedures XRay, CTs & MRIs X-RAY ACUTE ABDOMINAL SERIES IMPRESSION: Changes are present of small bowel obstruction. Gastric distention and air-fluid level is noted as well. Dictated by: Syed Stevenson M.D. on 05/17/2017 at 10:34 Approved by: Syed Stevenson M.D. on 05/17/2017 at 10:36 . ECG 12 Lead Paced complex, rate of 81 Brief History Trista Magdaleno is an 87 year old woman with a PMH of Afib on Xarelto, rheumatoid arthritis on Methotrexate and low dose prednisone, and prior SBOs s/p colon resection who presents with a 2 day history of nausea vomiting and mild chest pain. She states that her symptoms were worsened with eating, and relieved with small volumes of cold water. She further complains of pain in her lower abdomen , and states that she hasn't had a BM in the past 2 days but does endorse ongoing flatulence. Patient was kept NPO overnight with intermittent NGT suction for stomach decompression for 24 hours. Patient received OMT therapy for bowel obstruction, and given Gastrographin contrast through her NGT for a Gastrographin challenge study. Patient had two large bowel movements during the night and the Gastrographin study showed no SBO the following morning. The patient was progressed to a clear liquid diet, then full liquid diet, and finally to a regular diet and the patient tolerated this well. The patient had two more bowel movements before discharge. The patient was able to ambulate with minimal assistance. On the final hospital day, UA results and culture showed a urinary tract infection with E. coli. The patient was given a one time dose of Ceftriaxone IV and then discharged home with one week of Bactrim DS. Patient has been instructed to follow-up with her primary care physician in the next 1-2 weeks. Hospital Course Trista Magdaleno is an 87 year old female with a PMH of prior SBO and colonic obstruction, RA, and Afib on Xarelto with a pacer who presents with a 2 day history of worsening nausea, vomiting, and anorexia for the past 2 days. Patient is being medically managed for SBO. Patient has had a bowel movement during the night of 05/18. Small bowel obstruction, POA, acute. Resolved -NG tube suction discontinued 05/19/17 -Progressed to Clear liquid diet as tolerated (05/19/17), then progressed to full liquid diet as tolerated for second meal, progressed to full diet as tolerated for third meal. -Continued IV NS @100/hr once patient was tolerating clear liquid diet she was discontinued from IV fluids -Gastrographin study completed, showed resolution of SBO. -Held essential PO meds (continued Levothyroxine, methotrexate, and Prednisone) -Morphine sulfate as needed for abdominal pain - Ambulated patient as tolerated. Elevated Troponin of uncertain significance, POA, acute. Active -Troponin every 4 trended down started at 0.274 trended down to 0.114 -Held Heparin drip as patient may require surgery in the near future for SBO if this does not resolve. - Continue to monitor for any further signs of active chest pain, EKG changes, or any other signs leading towards an active NH Hypothyroid, POA, chronic. Active -continued Levothyroxine Afib on Xarelto, POA, chronic. Active -held Xarelto for possible surgical intervention - Continued Xarelto on discharge Rheumatoid Arthitis, POA, chronic. Stable -Continued Methotrexate and Prednisone Uncomplicated Cystitis, present on admission, stable. - gave one does of Ceftriaxone IV - Sent patient home with Bactrim DS for a full 7 day course. Exam Vital Signs (Last) Date Time Temp Pulse Resp B/P Pulse Ox O2 Delivery O2 Flow Rate FiO2 05/20/17 09:09 71 05/20/17 08:03 36.4 18 123/77 98 Room Air Exam Constitutional: Awake, alert and oriented x4. No acute distress. Head: normocephalic and atraumatic Eyes: EOMI, pupils equal round and reactive to light Heart: regular rate and rhythm. No peripheral edema. Lungs: clear to auscultation. no wheeze, rales, or rhonchi ABD: soft, nontender, bowel sounds present throughout. Musculoskeletal: moves all four extremities appropriately. Skin: warm, dry, no rash. Neuro: CN II-XII intact. No focal deficits. Psych: appropriate mood and affect. Test 05/17/17 10:00 05/17/17 21:40 05/18/17 03:05 05/18/17 09:33 Lipase 53U/L (13-60) Lactic Acid Level 1.0mmol/L (0.4-2.0) Hematology Comments Macrocytosis Prothrombin Time 11.6sec (8.1-12.5) Prothromb Time International Ratio 1.08ratio Phosphorus Level 3.3mg/dL (2.5-4.9) Magnesium Level 2.0mg/dL (1.6-2.6) Urine Color Dark yellow (YELLOW) Urine Appearance Slightly cloudy Urine pH 5.5 (5.0-8.0) Urine Specific [place] 1.030 (1.003-1.035) Urine Protein Tracemg/dL (NEG,TRACE) Urine Glucose (UA) Negativemg/dL (NEGATIVE) Urine Ketones 15mg/dL (NEGATIVE) Urine Occult Blood Moderate (NEGATIVE) Urine Nitrite Positive (NEGATIVE) Urine Bilirubin Negative (NEGATIVE) Urine Urobilinogen Normalmg/dL (NORMAL) Urine Leukocyte Esterase Trace (NEGATIVE) Urine RBC 0-2/hpf (0-2) Urine WBC 11-50/hpf (0-5) Urine Epithelial Cells Occasional/hpf (NONE-MOD) Urine Crystals None seen (NONE SEEN) Urine Bacteria Many/hpf (NONE-FEW) Urine Hyaline Casts None/lpf (NONE) Urine Granular Casts None seen (NONE SEEN) Urine Waxy Casts None seen (NONE SEEN) Urine Red Blood Cell Casts None seen (NONE SEEN) Urine White Blood Cell Casts None seen (NONE SEEN) Urine Mucus None seen (None Seen) Urine Trichomonas None seen (NONE SEEN) Urine Yeast None (NONE SEEN) Urinalysis Comment None Urine Culture Reflexed Indicated Test 05/18/17 20:28 05/19/17 02:45 05/20/17 05:22 Troponin T 0.114ug/L (0.0-0.011) White Blood Count 6.5th/mm3 (3.8-10.1) Red Blood Count 3.22mil/mm3 (3.90-5.20) Hemoglobin 11.9g/dL (12.0-15.6) Hematocrit 36.3% (35.0-46.0) Mean Corpuscular Volume 112.7fL (81-100) Mean Corpuscular Hemoglobin 37.0pg (27.0-35.0) Mean Corpuscular Hemoglobin Concent 32.8% (32.0-37.0) Red Cell Distribution Width 14.9% (12.3-15.4) Platelet Count 142bil/L (150-400) Neutrophils (%) (Auto) 76.1% (40-74) Lymphocytes (%) (Auto) 13.2% (14-46) Monocytes (%) (Auto) 9.4% (4-12) Eosinophils (%) (Auto) 0.8% (0-5) Basophils (%) (Auto) 0.3% (0-3) Sodium Level 143mEq/L (134-144) Potassium Level 3.8mEq/L (3.5-5.2) Chloride Level 105mEq/L (97-108) Carbon Dioxide Level 25mmol/L (18-29) Blood Urea Nitrogen 20mg/dL (8-27) Creatinine 0.45mg/dL (0.57-1.00) Estimat Glomerular Filtration Rate 189mL/min (>59) Glucose Level 88mg/dL (60-99) Calcium Level 8.1mg/dL (8.5-10.1) Total Bilirubin 0.8mg/dL (0.0-1.2) Aspartate Amino Transf (AST/SGOT) 22U/L (0-50) Alanine Aminotransferase (ALT/SGPT) 10U/L (0-32) Alkaline Phosphatase 54U/L (25-165) Total Protein 5.0g/dL (6.4-8.4) Albumin 3.2g/dL (3.4-5.0) Microbiology Results Urine culture: Gram Neg Ottoniel - probably E. coli Discharge Medications Discharge Medications Acyclovir (Acyclovir) 400 Mg Tablet 400 MG PO DAILY (Reported) Alendronate/Vitamin D3 (Alendronate/Vitamin D3) 1 Each Tablet 1 TAB PO every thursday (Reported) Cholecalciferol (Vitamin D3) (Vitamin D3) 1,000 Unit Tab.chew 1,000 UNIT PO DAILY (Reported) FA/Vit B Complex & C/Rice Bran (Vitamin B-Complex & C Caplet) 1 Each Tablet 1 EACH PO DAILY (Reported) Hydroxychloroquine Sulfate (Hydroxychloroquine Sulfate) 200 Mg Tablet 200 MG PO DAILY (Reported) Lactobacillus Combo No.11 (Probiotic) 1 Each Cap.sprink 1 EACH PO DAILY ( Reported) Levothyroxine (Synthroid) 75 Mcg Tablet 75 MCG PO DAILY (Reported) Methotrexate PF (Methotrexate PF) 25 Mg/1 Ml Vial 0.5 ML PO BID on only (Reported) [place]-3/Dha/Epa/Fish Oil (Fish Oil 1,000 mg Softgel) 1 Each Capsule 1 EACH PO DAILY (Reported) PredniSONE (PredniSONE) 1 Mg Tab 3 MG PO DAILY (Reported) Ranitidine (Zantac) 150 Mg Tablet 150 MG PO BID (Reported) Rivaroxaban (Xarelto) 20 Mg Tablet 20 MG PO QAM (Reported) Sulfamethoxazole/Trimeth 800-160 mg (Bactrim DS 800-160 mg) 1 Each Tablet 1 TABLET PO BID Prescribed by: Onel LOWE As needed Acetaminophen (Acetaminophen) 325 Mg Capsule 650 MG PO TID PRN PRN For Pain ( Reported) Baclofen (Baclofen) 10 Mg Tablet 5-10 MG PO HS PRN PRN For Pain (Reported) Citalopram (Citalopram) 10 Mg Tablet 10 MG PO HS PRN PRN prn (Reported) Dicyclomine (Bentyl) 10 Mg Capsule 10 MG PO BID PRN PRN For Pain (Reported) Ipratropium [place] (Ipratropium [place] 0.06% Nasal) 15 Ml [place] 2 SPRAYS NASAL TID PRN PRN prn (Reported) oxyCODONE-Acetaminophen 5-325 mg (oxyCODONE-Acetaminophen 5-325 mg) 1 Each Tablet 1 TAB PO HS PRN PRN For Pain (Reported) Additional med instructions Take the Bactrim DS 160mg tablet twice a day for the next seven days to treat your urinary tract infection. Please do not skip your doses of your anti-depressant, Citalopram. This medicine should be taken daily to see the full effect of the medication. Talk to your primary care provider about your need to continue this medication in the future. Followup Plan Disposition: Home Follow-up plan Follow up with your Primary Care Provider in one week to discuss your recent hospital admission. Discharge Diet: Heart Healthy Discharge Activity: No restrictions Patient Instructions Drink plenty of fluids, and foods with fiber. Follow-up Provider: Sky Stein DO Follow-up with PCP in: 1 week Time spent Greater than 35 minutes Attending Statement The patient was seen and examined together with Dr. Mccray on 05/20/17 and I agree with the history, exam and plan as outlined in the note above. copies to: Sky Stein Anthony P DO May 20, 2017 19:17 Mercy Goel DO May 21, 2017 14:32
== END 2017-05-20 13:20 | disposition home or self-care (01) | DRG 389 ==
LOC: SED 09:36 → OBSVTOIN 11:14 → OSC 11:14 → CCU 13:06 → PCC 13:31 → OSC 05-19 21:21
PROVIDERS: ADMIT Internal Medicine; ATTEND Neuromusculoskeletal Medicine & OMM
PROC: 0KN Muscles, Release (ICD-10-PCS; principal; 2017-05-19)
PROC: 0KN Muscles, Release (ICD-10-PCS; 2017-05-19)
DX: K56.60 Unspecified intestinal obstruction (principal); I24.8 Other forms of acute ischemic heart disease; N39.0 Urinary tract infection, site not specified; B96.20 Unspecified Escherichia coli [E. coli] as the cause of diseases classified elsewhere; Z95.0 Presence of cardiac pacemaker; I48.91 Unspecified atrial fibrillation; Z79.01 Long term (current) use of anticoagulants; Z87.891 Personal history of nicotine dependence; M06.9 Rheumatoid arthritis, unspecified; K21.9 Gastro-esophageal reflux disease without esophagitis; E03.9 Hypothyroidism, unspecified; Z66 Do not resuscitate